=== PATIENT | female | born 1965 | race Caucasian/White ===

== ENCOUNTER 2019-10-19 17:29 | Emergency (ER) | payer MEDICAID ==
[~2019-10-19] VITALS: Ht 170.2 cm; Wt 86.0 kg
[2019-10-19] MEDS ORDERED: SODIUM CHLORIDE 0.9% 1,000 ML IV ONE ×2 (18:12→18:40)
[2019-10-19] MEDS ORDERED: INSULIN REGULAR (HUMULIN R) 300UNITS/3ML IV ONE ×2 (18:40→21:30)
[2019-10-19] MEDS ORDERED: CLONIDINE 0.1MG TABLET PO ONE (18:41)
[2019-10-19] MEDS ORDERED: MORPHINE SULFATE 10 MG/ML CPJ IV NR (18:41)
[2019-10-19 18:47] LABS: CHLORIDE 96 mEq/L (98-107)
[2019-10-19 18:49] LABS: INR 0.9
[2019-10-19 18:51] LABS: BASOPHILS % 1.3 % (0.0-2.0); EOSINOPHILS % 1.1 % (0.0-5.0); ETHANOL BLOOD < 10 mg/dL; HEMOGLOBIN. 10.7 g/dL (12.0-16.0); LYMPHOCYTES % 22.8 % (20.0-50.0); MEAN CORPUSCULAR HEMOGLOBIN 28.5 pg (28.0-32.0); MEAN CORPUSCULAR VOLUME 85.1 fL (81.0-99.0); MEAN PLATELET VOLUME 7.3 fl (7.4-10.4); MONOCYTES % 5.6 % (2.0-8.0); NEUTROPHILS % 69.2 % (40.0-76.0); PLATELET 404 x1000/uL (130-400); RED BLOOD CELL COUNT 3.76 mill/uL (4.2-5.4); RED CELL DISTRIBUTION WIDTH 13.8 % (11.6-14.6)
[2019-10-19 20:25] LABS: CLARITY URINE CLEAR (CLEAR); COLOR URINE YELLOW (YELLOW); KETONES URINE NEGATIVE (NEGATIVE); LEUKOCYTE ESTERASE URINE NEGATIVE (NEGATIVE); NITRITE URINE NEGATIVE (NEGATIVE); OCCULT BLOOD URINE NEGATIVE (NEGATIVE); PROTEIN URINE 3+ (NEGATIVE); SPECIFIC GRAVITY URINE 1.024 (1.005-1.030); UROBILINOGEN URINE 0.2 E.U./dL (0.2-1.0)
[2019-10-19 20:36] LABS: *AMPHETAMINES SCREEN URINE NEGATIVE (NEGATIVE); *BARBITURATES SCREEN URINE NEGATIVE (NEGATIVE)
[2019-10-19 20:37] LABS: *BENZODIAZEPINES SCREEN URINE NEGATIVE (NEGATIVE); *COCAINE SCREEN URINE NEGATIVE (NEGATIVE); METHADONE URINE SCREEN NEGATIVE (NEGATIVE); OPIATES URINE SCREEN PRESUMTIVE POSITIVE (NEGATIVE); PHENCYCLIDINE URINE SCREEN NEGATIVE (NEGATIVE)
[2019-10-19 20:38] LABS: CANNABINOID URINE SCREEN PRESUMTIVE POSITIVE (NEGATIVE)
[2019-10-19] MEDS ORDERED: CLONIDINE 0.2MG TABLET PO NR (21:00)
[2019-10-19] MEDS ORDERED: INSULIN REGULAR (HUMULIN R) 300UNITS/3ML SUBCUT NR (21:00)
[2019-10-19] MEDS ORDERED: ENALAPRIL 1.25MG/ML VIAL 1ML IV NR (22:27)
[2019-10-20] MEDS ORDERED: HYDROCHLOROTHIAZIDE 25MG TABLET PO ONE (00:15)
[2019-10-20] MEDS ORDERED: MORPHINE SULFATE 4 MG/ML CPJ (NOT FOR IM USE) IV NR (01:45)
[2019-10-20] MEDS ORDERED: KETOROLAC 30MG/ML VIAL IV NR (01:45)
[2019-10-20] MEDS ORDERED: PENICILLIN G BENZATHINE 1,200,000 UNITS/2ML SYR IM NR (01:45)
[2019-10-20 03:32] VITALS: BP 125/65
== END 2019-10-20 03:34 | disposition home or self-care (01) ==
LOC: ER 17:29
DX: E11.65 Type 2 diabetes mellitus with hyperglycemia (principal); I10 Essential (primary) hypertension; K02.9 Dental caries, unspecified; M54.30 Sciatica, unspecified side; Z87.442 Personal history of urinary calculi; Z79.4 Long term (current) use of insulin
CPT/HCPCS: 36415; 71045; 76705; 80053; 80305; 80320; 81003; 82962; 83690; 84484; 85025; 85610; 93005; 96372; 96374; 96375; 96376; 99285; J0561; J1815; J1885; J2270; J3490; J7030; G0480

== ENCOUNTER 2020-07-27 09:10 | Inpatient (IN) | payer MEDICAID ==
[~2020-07-27] VITALS: Ht 182.9 cm; Wt 127.1 kg
[2020-07-27] MEDS ORDERED: MORPHINE SULFATE 4 MG/ML CPJ (NOT FOR IM USE) IV STA (09:25)
[2020-07-27] MEDS ORDERED: ONDANSETRON HCL 4MG/2ML INJ IV STA (09:25)
[2020-07-27 10:22] LABS: BASOPHILS % 0.9 % (0.0-2.0); EOSINOPHILS % 0.6 % (0.0-5.0); LYMPHOCYTES % 11.1 % (20.0-50.0); MEAN CORPUSCULAR HEMOGLOBIN 23.2 pg (28.0-32.0); MEAN CORPUSCULAR VOLUME 75.4 fL (81.0-99.0); MONOCYTES % 3.7 % (2.0-8.0); NEUTROPHILS % 83.7 % (40.0-76.0); PLATELET 441 x1000/uL (130-400); RED CELL DISTRIBUTION WIDTH 16.8 % (11.6-14.6)
[2020-07-27 10:23] LABS: CHLORIDE 104 mEq/L (98-107)
[2020-07-27 10:26] LABS: HEMATOCRIT. 19.6 % (36.0-48.0); HEMOGLOBIN. 6.1 g/dL (12.0-16.0)
[2020-07-27 11:21] LABS: CLARITY URINE CLOUDY (CLEAR); COLOR URINE YELLOW (YELLOW); KETONES URINE 1+ (NEGATIVE); LEUKOCYTE ESTERASE URINE 2+ (NEGATIVE); NITRITE URINE NEGATIVE (NEGATIVE); OCCULT BLOOD URINE NEGATIVE (NEGATIVE); PROTEIN URINE 3+ (NEGATIVE); SPECIFIC GRAVITY URINE 1.019 (1.005-1.030); UROBILINOGEN URINE 0.2 E.U./dL (0.2-1.0)
[2020-07-27 11:49] LABS: PROTHROMBIN TIME 10.8 sec (9.6-11.0)
[2020-07-27] MEDS ORDERED: METOCLOPRAMIDE HCL 10MG/2ML VIAL IV PRN (12:45)
[2020-07-27] MEDS ORDERED: ONDANSETRON HCL 4MG/2ML INJ IV PRN (12:45)
[2020-07-27 13:20] LABS: TOTAL IRON BINDING CAPACITY 512 ug/dL (250-450)
[2020-07-27] MEDS ORDERED: MORPHINE SULFATE 4 MG/ML CPJ (NOT FOR IM USE) IV ONE (13:45)
[2020-07-27] MEDS: SODIUM CHLORIDE 0.45% 1,000 ML IV SCH (14:00)
[2020-07-27 14:22] LABS: FERRITIN 6 ng/mL (10-291)
[2020-07-27 14:33] LABS: HEPATITIS B SURFACE ANTIGEN NEGATIVE
[2020-07-27 15:03] LABS: HEPATITIS A AB IGM NEGATIVE (NEGATIVE)
[2020-07-27 15:44] LABS: VITAMIN B12 SERUM 601 pg/mL (211-911)
[2020-07-27] MEDS ORDERED: CLONIDINE 0.2MG TABLET PO PRN (17:00)
[2020-07-27 20:00] VITALS: BP 140/73
[2020-07-27] MEDS: PANTOPRAZOLE SODIUM 40 MG/VIAL IV SCH (20:07)
[2020-07-27 21:00] VITALS: BP 140/73
[2020-07-27 21:37] LABS: MEAN CORPUSCULAR HEMOGLOBIN 23.6 pg (28.0-32.0); MEAN CORPUSCULAR VOLUME 76.3 fL (81.0-99.0); PLATELET 377 x1000/uL (130-400); RED BLOOD CELL COUNT 2.86 mill/uL (4.2-5.4); RED CELL DISTRIBUTION WIDTH 17.3 % (11.6-14.6)
[2020-07-27 21:46] LABS: CHLORIDE 105 mEq/L (98-107)
[2020-07-27 21:48] LABS: HEMOGLOBIN 6.8 g/dL (12.0-16.0)
[2020-07-27 21:49] LABS: HEMATOCRIT 21.8 % (36.0-48.0)
[2020-07-27 21:52] LABS: TOTAL IRON BINDING CAPACITY 433 ug/dL (250-450)
[2020-07-27] MEDS: CEFTRIAXONE 2 G in DEXTROSE 5% WATER 50 ML IV SCH (23:00)
[2020-07-28] MEDS: GABAPENTIN 300MG CAPSULE PO SCH ×4 (01:03→21:57)
[2020-07-28] MEDS: TRAZODONE HCL 50MG TABLET PO SCH ×2 (01:03→21:00)
[2020-07-28] MEDS: SODIUM CHLORIDE 0.45% 1,000 ML IV SCH (03:33)
[2020-07-28] MEDS ORDERED: DEXTROSE 50% WATER 50ML SYRINGE IV PRN ×2 (07:30)
[2020-07-28] MEDS ORDERED: DOCUSATE SODIUM 100MG CAPSULE PO PRN (07:30)
[2020-07-28] MEDS ORDERED: MAGNESIUM/ALUMINUM HYDROXIDE/SIMETHICONE 30ML UDC PO PRN (07:30)
[2020-07-28] MEDS ORDERED: BLOOD SUGAR DIAGNOSTIC STRIP TEST SCH (07:40)
[2020-07-28] MEDS ORDERED: INSULIN LISPRO 100 UNITS/ML SUBCUT SCH (07:40)
[2020-07-28] MEDS ORDERED: CLONIDINE 0.2MG TABLET PO PRN (07:45)
[2020-07-28] MEDS: INSULIN LISPRO (HIGH DOSE) 100 UNITS/ML SUBCUT SCH ×4 (08:00→22:00)
[2020-07-28] MEDS: BLOOD SUGAR DIAGNOSTIC STRIP TEST SCH ×4 (08:50→22:00)
[2020-07-28] MEDS: PANTOPRAZOLE SODIUM 40 MG/VIAL IV SCH ×2 (09:53→21:57)
[2020-07-28] MEDS: FERROUS SULFATE 325MG TABLET PO SCH (09:54)
[2020-07-28] MEDS: LISINOPRIL 10MG TABLET PO SCH (09:54)
[2020-07-28] MEDS ORDERED: INSULIN GLARGINE UD 100 UNITS/ML SYR SUBCUT SCH (10:00)
[2020-07-28] MEDS: ACETAMINOPHEN 325MG TABLET PO PRN ×2 (12:50→13:58)
[2020-07-28 15:37] VITALS: BP 111/58
[2020-07-28 15:51] VITALS: BP 125/69
[2020-07-28 17:05] VITALS: BP 137/83
[2020-07-28] MEDS: IRON SUCROSE COMPLEX 100 MG/5 ML ML IV SCH (19:03)
[2020-07-28 20:00] VITALS: BP 159/84
[2020-07-28 20:54] LABS: BASOPHILS % 0.7 % (0.0-2.0); EOSINOPHILS % 1.6 % (0.0-5.0); HEMATOCRIT. 28.2 % (36.0-48.0); HEMOGLOBIN. 8.9 g/dL (12.0-16.0); MEAN CORPUSCULAR HEMOGLOBIN 24.6 pg (28.0-32.0); MEAN CORPUSCULAR VOLUME 78.4 fL (81.0-99.0); MEAN PLATELET VOLUME 7.1 fl (7.4-10.4); MONOCYTES % 6.7 % (2.0-8.0); PLATELET 346 x1000/uL (130-400); RED CELL DISTRIBUTION WIDTH 17.1 % (11.6-14.6)
[2020-07-28] MEDS ORDERED: VENLAFAXINE HCL 37.5MG SR CAPSULE 24HR PO SCH (21:00)
[2020-07-28] MEDS: CEFTRIAXONE 2 G in DEXTROSE 5% WATER 50 ML IV SCH (23:33)
[2020-07-29] VITALS: BP 131/62
[2020-07-29 04:00] VITALS: BP 119/55
[2020-07-29] MEDS: BLOOD SUGAR DIAGNOSTIC STRIP TEST SCH ×3 (06:18→17:28)
[2020-07-29] MEDS: GABAPENTIN 300MG CAPSULE PO SCH ×2 (06:18→13:11)
[2020-07-29] MEDS: SODIUM CHLORIDE 0.45% 1,000 ML IV SCH (06:18)
[2020-07-29] MEDS: INSULIN LISPRO (HIGH DOSE) 100 UNITS/ML SUBCUT SCH ×3 (07:13→17:15)
[2020-07-29 07:37] LABS: BASOPHILS % 0.8 % (0.0-2.0); HEMATOCRIT. 24.7 % (36.0-48.0); LYMPHOCYTES % 20.7 % (20.0-50.0); MEAN CORPUSCULAR HEMOGLOBIN 25.1 pg (28.0-32.0); MEAN CORPUSCULAR VOLUME 77.6 fL (81.0-99.0); MEAN PLATELET VOLUME 7.2 fl (7.4-10.4); NEUTROPHILS % 65.5 % (40.0-76.0); PLATELET 314 x1000/uL (130-400); RED BLOOD CELL COUNT 3.19 mill/uL (4.2-5.4)
[2020-07-29 07:44] LABS: CHLORIDE 104 mEq/L (98-107)
[2020-07-29 08:00] VITALS: BP 118/63
[2020-07-29] MEDS ORDERED: BUPROPION HCL 150MG TABLET XL 24HR PO SCH (09:00)
[2020-07-29] MEDS: FERROUS SULFATE 325MG TABLET PO SCH (10:14)
[2020-07-29] MEDS: PANTOPRAZOLE SODIUM 40 MG/VIAL IV SCH (10:15)
[2020-07-29] MEDS: IRON SUCROSE COMPLEX 100 MG/5 ML ML IV SCH (10:15)
[2020-07-29] MEDS: LISINOPRIL 10MG TABLET PO SCH (10:15)
[2020-07-29 12:00] VITALS: BP 169/76
[2020-07-29 18:51] VITALS: BP 143/76
[2020-08-03 06:10] LABS: BARBITURATE SCREEN Negative ug/mL (Cutoff:0.1); BENZODIAZEPINE SCREEN Negative ng/mL (Cutoff:20); OPIATES SCREEN Negative ng/mL (Cutoff:5); PHENCYCLIDINE SCREEN Negative ng/mL (Cutoff:8)
== END 2020-07-29 19:35 | disposition home or self-care (01) ==
LOC: ER 09:17 → 7WST 11:32 → EDBEDREQ 11:40 → CANRESERV 16:20 → ENRESERV 16:20 → 5WST 07-28 08:32
PROVIDERS: ADMIT Internal Medicine; ATTEND Internal Medicine
PROC: 30233N1 Transfusion of Nonautologous Red Blood Cells into Peripheral Vein, Percutaneous Approach (ICD-10-PCS; principal; 2020-07-27)
DX: K80.50 Calculus of bile duct without cholangitis or cholecystitis without obstruction (principal); D50.9 Iron deficiency anemia, unspecified; I12.9 Hypertensive chronic kidney disease with stage 1 through stage 4 chronic kidney disease, or unspecified chronic kidney disease; E11.22 Type 2 diabetes mellitus with diabetic chronic kidney disease; N18.9 Chronic kidney disease, unspecified; E66.01 Morbid (severe) obesity due to excess calories; F41.9 Anxiety disorder, unspecified; Z20.822 Contact with and (suspected) exposure to COVID-19; E11.65 Type 2 diabetes mellitus with hyperglycemia; N39.0 Urinary tract infection, site not specified; F32.9 Major depressive disorder, single episode, unspecified; R16.0 Hepatomegaly, not elsewhere classified; Z68.38 Body mass index [BMI] 38.0-38.9, adult; J90 Pleural effusion, not elsewhere classified; F15.11 Other stimulant abuse, in remission; M54.30 Sciatica, unspecified side
CPT/HCPCS: 36415; 74176; 76705; 78227; 80048; 80053; 80076; 80307; 81003; 82607; 82728; 82746; 82962; 83036; 83540; 83550; 85025; 85027; 85651; 86705; 86709; 86803; 86850; 86900; 86920; 87340; 93005; 99291; A4565; A9537; C9113; J0696; J1815; J2270; J2405; J2765; J7060; P9016; U0003

== ENCOUNTER 2020-11-05 02:57 | Inpatient (IN) | payer MEDICAID ==
[~2020-11-05] VITALS: Ht 170.2 cm; Wt 109.8 kg
[2020-11-05] MEDS ORDERED: METOCLOPRAMIDE HCL 10MG/2ML VIAL IV STA (03:23)
[2020-11-05] MEDS ORDERED: FAMOTIDINE 20MG/2ML VIAL IV STA (03:23)
[2020-11-05] MEDS ORDERED: MORPHINE SULFATE 4 MG/ML CPJ (NOT FOR IM USE) IV STA (03:23)
[2020-11-05] MEDS ORDERED: SODIUM CHLORIDE 0.9% 1,000 ML IV ONE (03:30)
[2020-11-05 03:55] LABS: BASOPHILS % 0.7 % (0.0-2.0); EOSINOPHILS % 1.8 % (0.0-5.0); HEMATOCRIT. 34.9 % (36.0-48.0); HEMOGLOBIN. 11.3 g/dL (12.0-16.0); LYMPHOCYTES % 21.1 % (20.0-50.0); MEAN CORPUSCULAR HEMOGLOBIN 27.4 pg (28.0-32.0); MEAN CORPUSCULAR VOLUME 84.6 fL (81.0-99.0); MONOCYTES % 4.9 % (2.0-8.0); NEUTROPHILS % 71.5 % (40.0-76.0); PLATELET 393 x1000/uL (130-400); RED BLOOD CELL COUNT 4.13 mill/uL (4.2-5.4)
[2020-11-05 03:57] LABS: CHLORIDE 104 mEq/L (98-107)
[2020-11-05 04:00] LABS: PROTHROMBIN TIME 10.5 sec (9.6-11.0)
[2020-11-05] MEDS ORDERED: MIDAZOLAM HCL 2 MG/2 ML VIAL IV ONE (04:45)
[2020-11-05 05:55] LABS: CLARITY URINE CLEAR (CLEAR); COLOR URINE YELLOW (YELLOW); KETONES URINE TRACE (NEGATIVE); LEUKOCYTE ESTERASE URINE NEGATIVE (NEGATIVE); NITRITE URINE NEGATIVE (NEGATIVE); OCCULT BLOOD URINE TRACE (NEGATIVE); PROTEIN URINE 4+ (NEGATIVE); SPECIFIC GRAVITY URINE 1.015 (1.005-1.030); UROBILINOGEN URINE 0.2 E.U./dL (0.2-1.0)
[2020-11-05] MEDS ORDERED: AMLODIPINE 10MG TABLET PO NR (08:00)
[2020-11-05 09:00] VITALS: BP 230/133
[2020-11-05] MEDS ORDERED: ONDANSETRON HCL 4MG/2ML INJ IV PRN ×2 (09:00→12:30)
[2020-11-05] MEDS: MORPHINE SULFATE 2 MG/ML CPJ (NOT FOR IM USE) IV PRN ×3 (09:06→23:11)
[2020-11-05] MEDS ORDERED: PANT40TA51 MT (09:11)
[2020-11-05] MEDS ORDERED: STAR120 MT (09:11)
[2020-11-05] MEDS ORDERED: GABA-529 MT (09:11)
[2020-11-05] MEDS ORDERED: DEXTROSE 50% WATER 50ML SYRINGE IV PRN (09:15)
[2020-11-05] MEDS: METRONIDAZOLE 500 MG PREMIX 100 ML IV SCH ×2 (11:43→22:12)
[2020-11-05] MEDS: CEFTRIAXONE 1,000 MG in DEXTROSE 5% WATER 50 ML IV SCH (11:44)
[2020-11-05] MEDS: SODIUM CHLORIDE 0.45% 1,000 ML IV SCH ×2 (11:44→22:13)
[2020-11-05 12:00] VITALS: BP 146/75
[2020-11-05] MEDS: BLOOD SUGAR DIAGNOSTIC STRIP TEST SCH ×3 (12:10→21:00)
[2020-11-05] MEDS ORDERED: ONDANSETRON HCL 4MG/2ML INJ IV NR (12:30)
[2020-11-05] MEDS ORDERED: MORPHINE SULFATE 2 MG/ML CPJ (NOT FOR IM USE) IV NR (12:30)
[2020-11-05] MEDS ORDERED: EFEX1 PO (12:35)
[2020-11-05] MEDS ORDERED: TRAZ-252 MT (12:37)
[2020-11-05] MEDS ORDERED: BUPR100T13 PO (12:37)
[2020-11-05] MEDS: GABAPENTIN 100MG CAPSULE PO SCH ×2 (13:11→18:24)
[2020-11-05] MEDS: PANTOPRAZOLE 40MG DR TABLET PO SCH (13:11)
[2020-11-05] MEDS: INSULIN LISPRO 100 UNITS/ML SUBCUT SCH ×3 (13:23→22:43)
[2020-11-05] MEDS ORDERED: VENLAFAXINE HCL 100MG TABLET PO SCH (14:45)
[2020-11-05 16:00] VITALS: BP 100/64
[2020-11-05] MEDS: METOCLOPRAMIDE HCL 10MG/2ML VIAL IV SCH ×2 (18:24→23:10)
[2020-11-05 20:00] VITALS: BP 111/65
[2020-11-06] VITALS (8 sets, daily range): BP systolic 107–149; BP diastolic 58–75
[2020-11-06] MEDS: METRONIDAZOLE 500 MG PREMIX 100 ML IV SCH ×2 (04:49→11:09)
[2020-11-06] MEDS: BLOOD SUGAR DIAGNOSTIC STRIP TEST SCH (07:10)
[2020-11-06] MEDS: METOCLOPRAMIDE HCL 10MG/2ML VIAL IV SCH ×2 (07:25→12:57)
[2020-11-06] MEDS: INSULIN LISPRO 100 UNITS/ML SUBCUT SCH ×2 (07:26→13:30)
[2020-11-06 08:57] LABS: *AMPHETAMINES SCREEN URINE PRESUMTIVE POSITIVE (NEGATIVE); *BARBITURATES SCREEN URINE NEGATIVE (NEGATIVE); *BENZODIAZEPINES SCREEN URINE NEGATIVE (NEGATIVE); *COCAINE SCREEN URINE NEGATIVE (NEGATIVE); CANNABINOID URINE SCREEN PRESUMTIVE POSITIVE (NEGATIVE); METHADONE URINE SCREEN NEGATIVE (NEGATIVE); OPIATES URINE SCREEN PRESUMTIVE POSITIVE (NEGATIVE); PHENCYCLIDINE URINE SCREEN NEGATIVE (NEGATIVE)
[2020-11-06] MEDS: PANTOPRAZOLE 40MG DR TABLET PO SCH (09:00)
[2020-11-06] MEDS: GABAPENTIN 100MG CAPSULE PO SCH ×2 (09:00→13:25)
[2020-11-06] MEDS ORDERED: PATIENT OWN MEDICATION PO SCH (10:15)
[2020-11-06] MEDS: CEFTRIAXONE 1,000 MG in DEXTROSE 5% WATER 50 ML IV SCH (11:08)
[2020-11-06 11:15] LABS: BASOPHILS % 1.3 % (0.0-2.0); EOSINOPHILS % 1.5 % (0.0-5.0); HEMATOCRIT. 36.1 % (36.0-48.0); LYMPHOCYTES % 26.2 % (20.0-50.0); MEAN CORPUSCULAR HEMOGLOBIN 27.7 pg (28.0-32.0); MEAN CORPUSCULAR VOLUME 83.8 fL (81.0-99.0); MEAN PLATELET VOLUME 6.9 fl (7.4-10.4); MONOCYTES % 6.7 % (2.0-8.0); NEUTROPHILS % 64.3 % (40.0-76.0); PLATELET 406 x1000/uL (130-400); RED BLOOD CELL COUNT 4.31 mill/uL (4.2-5.4); RED CELL DISTRIBUTION WIDTH 17.1 % (11.6-14.6)
[2020-11-06 12:09] LABS: CHLORIDE 105 mEq/L (98-107)
[2020-11-06] MEDS: SODIUM CHLORIDE 0.45% 1,000 ML IV SCH (12:56)
[2020-11-06] MEDS ORDERED: METO5TAB86 MT ×2 (16:18)
[2020-11-07] MEDS ORDERED: FAMOTIDINE 20MG TABLET PO SCH (07:10)
== END 2020-11-06 16:55 | disposition home or self-care (01) | DRG 244 ==
LOC: ER 02:57 → 8WST 05:36 → ENRESERV 07:21 → 6EST 11-06 12:46
PROVIDERS: ADMIT Family Medicine; ATTEND Family Medicine
DX: K57.92 Diverticulitis of intestine, part unspecified, without perforation or abscess without bleeding (principal); E11.40 Type 2 diabetes mellitus with diabetic neuropathy, unspecified; K52.9 Noninfective gastroenteritis and colitis, unspecified; I10 Essential (primary) hypertension; F32.9 Major depressive disorder, single episode, unspecified; F41.9 Anxiety disorder, unspecified; M54.30 Sciatica, unspecified side; E66.9 Obesity, unspecified; Z68.37 Body mass index [BMI] 37.0-37.9, adult; D64.9 Anemia, unspecified; Z90.49 Acquired absence of other specified parts of digestive tract; Z91.013 Allergy to seafood; Z79.899 Other long term (current) drug therapy
CPT/HCPCS: 36415; 71045; 74176; 80053; 80305; 81003; 82962; 83036; 83605; 84484; 85025; 93005; 99285; C1893; J0696; J1815; J2250; J2270; J2405; J2765; J3490; J7030; J7040; J7060

== ENCOUNTER 2021-03-18 15:51 | Emergency (ER) | payer MEDICAID ==
[~2021-03-18] VITALS: Ht 182.9 cm; Wt 107.0 kg
[~2021-03-18 15:51] MED LIST: BUPR100T13 PO; EFEX1 PO; GABA-529 MT; PANT40TA51 MT; STAR120 MT; TRAZ-252 MT
[2021-03-18] MEDS ORDERED: SULF1TAB48 MT (18:26)
[2021-03-18] MEDS ORDERED: CEPH500T MT (18:27)
[2021-03-18] MEDS ORDERED: IBUPROFEN 800MG TABLET PO ONE (18:30)
[2021-03-18] MEDS ORDERED: CEPHALEXIN 250MG CAPSULE PO ONE (18:30)
[2021-03-18] MEDS ORDERED: SULFAMETHOXAZOLE/TRIMETHOPRIM 800/160MG TABLET PO ONE (18:30)
[2021-03-18 18:50] VITALS: BP 157/70
== END 2021-03-18 18:51 | disposition home or self-care (01) ==
LOC: ER 15:51
DX: L03.011 Cellulitis of right finger (principal); F41.9 Anxiety disorder, unspecified; F32.9 Major depressive disorder, single episode, unspecified; E11.9 Type 2 diabetes mellitus without complications; Z90.49 Acquired absence of other specified parts of digestive tract; Z79.899 Other long term (current) drug therapy
CPT/HCPCS: 99283